=== PATIENT | male | born 1975 | race Caucasian/White ===

== ENCOUNTER → 2017-02-12 | Outpatient (CLI) | payer OTHER, MEDICAID ==
[~2017-02-12] MED LIST: ATENOLOL25 MG PO; AURALGAN OT10 ML/BOT OT; BACTRIM DS 8001 TA1 PO; BACTRIM DS 8001 TAB PO; DICLOFENAC 50MG50 MG PO; FIORICET 325 MG1 TAB PO; FLEXERIL10 M1 PO; HYDROCHLOROTHIA25 M1 PO; IMODIUM 2MG. CAP2 MG PO; KEFLEX 500MG.500 MG PO; LEVAQUIN500 MG PO; LOMOTIL 2.5MG.2.5 MG PO; MEDROL 4MG. DOSE4 MG PO; MOBIC7.5 MG PO; PHENERGAN 25MG.25 M1 PO; PHENERGAN25 M3 PO; PREDNISONE 10MG10 MG PO; ROBAXIN-750750 MG PO; ROBITUSSIN NIG118 ML PO; SEROQUEL XR200 MG; STERAPRED DS10 MG PO; TENORMIN25 MG PO; TESSALON PERLE100 M1 PO; TESSALON PERLE200 MG PO; TORADOL10 MG PO; VENLAFAXINE HYD75 MG; VIBRAMYCIN 100100 MG PO; VICODIN 5/500 T1 TAB PO; VICODIN 5/6 EACH/PAK OR; ZITHROMAX Z PA250 MG PO; ZOFRAN ODT4 MG PO
--- NOTE | 2017-02-15 05:03 | RADIOLOGY REPORT PS360 ---
MRI-L-SPINE W/O, MRI-3D RENDERING/MYELOGRAM HISTORY: Right-sided low back pain NECK PAIN, BACK PAIN ORDERING PHYSICIAN: Reece Kebede MD PATIENT AGE: 41 years COMPARISON: CT scan of 01/25/2017 TECHNIQUE: Standard multiplanar multiecho sequences are performed without contrast. 3-D MIP and myelographic images are also rendered and reviewed FINDINGS: There is normal alignment. The spinal cord ends at the T12-L1 level. Degenerative disc disease T11-T12 with type II endplate changes L1-L2, L2-L3: Mild facet and ligamentum flavum hypertrophy. L3-L4: Mild disc desiccation with slight decrease in the disc space consistent with mild degenerative disc disease with mild facet and ligamentum flavum hypertrophy. L4-L5: Facet and ligamentum flavum hypertrophy with mild bulging disc with canal stenosis and mild bilateral lateral recess and foraminal narrowing. L5-S1: Bulging disc with facet and ligamentum flavum hypertrophy. The disc bulge is slightly eccentric toward the left. There is mild left lateral recess and foraminal narrowing. There is canal stenosis at this level with canal measuring 10 mm. No fracture or dislocation. No disc herniation. IMPRESSION: 1. Mild degenerative disc disease at L3-L4 with minimal bulging disc. 2. Mild bulging disc at L5-S1 slightly eccentric toward the left. 3. Canal stenosis at L4-5 and L5-S1. 4. Multilevel facet and ligamentum flavum hypertrophy as detailed above. 5. No acute fracture or disc herniation
--- NOTE | 2017-02-15 05:13 | RADIOLOGY REPORT PS360 ---
MRI-C-SPINE W/O HISTORY: Neck pain NECK PAIN, BACK PAIN ORDERING PHYSICIAN: Reece Kebede MD PATIENT AGE: 41 years COMPARISON: CT scan of 01/25/2017, MRI of 04/01/2012 TECHNIQUE: Standard multiplanar multiecho sequences are performed without contrast. 3-D MIP and myelographic images are also rendered and reviewed FINDINGS: There is normal alignment. The craniocervical junction has an unremarkable appearance. The spinal cord has an unremarkable appearance. C2-C3, C3-C4: Unremarkable. C4-C5: There is a small central disc protrusion/herniation versus slightly eccentric to the left. This is not significantly changed from 04/01/2012. This does abut the anterior aspect of the cord without cord displacement. C5-C6, C6-C7, and C7-T1 are unremarkable. There is decrease T1 and increased T2 signal along the superior endplate of T1, T2, and T3 with very slight decrease in height consistent with minimal acute compression changes. The T3 vertebral body is incompletely imaged. There is minimal endplate irregularity of T1, T2 and T3. No retropulsed fragments are apparent IMPRESSION: 1. Minimal acute compression changes involving the superior endplate of T1, T2, and T3 without retropulsion. T3 is incompletely imaged. Consider MRI of the thoracic spine to ensure there are no other associated fractures. 2. No change small central disc protrusion C4-C5 with canal stenosis at this level. The disc does abut the anterior aspect of the cord without cord displacement
== END ==
LOC: RAD 12:56
DX: M54.2 Cervicalgia (principal); M54.5 Low back pain

== ENCOUNTER → 2017-02-17 | Outpatient (CLI) | payer OTHER, MEDICAID ==
[2017-02-17 16:40] LABS: AMPHETAMINES/METAMPHETAMINES NEGATIVE ng/mL (<1000)
== END ==
LOC: LAB 15:30
PROVIDERS: Emergency Medicine
DX: Z79.899 Other long term (current) drug therapy (principal)

== ENCOUNTER → 2017-03-05 | Outpatient (CLI) | payer OTHER, MEDICAID ==
[~2017-03-05] MED LIST changes: +METOPROLOL SUCC25 M1 PO; -SEROQUEL XR200 MG; +SEROQUEL XR200 MG PO; -VENLAFAXINE HYD75 MG; +VENLAFAXINE HYD75 MG PO
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
== END ==
LOC: RAD 15:47
DX: M54.6 Pain in thoracic spine (principal)

== ENCOUNTER → 2017-04-26 | Outpatient (CLI) | payer MEDICAID ==
[2017-04-26 15:39] LABS: LYMPH # 1.7 K/mm3 (0.7-4.5); LYMPH % 25.9 % (10-50)
[2017-04-26 15:59] LABS: BUN 15 mg/dL (7-18)
[2017-04-26 16:00] LABS: GFR (ESTIMATED) 93 ML/MIN (>60)
== END ==
LOC: LAB 13:46
PROVIDERS: Emergency Medicine
DX: I10 Essential (primary) hypertension (principal); E66.9 Obesity, unspecified; Z79.899 Other long term (current) drug therapy